=== PATIENT | female | born 1980 | race Caucasian/White ===

== ENCOUNTER 2020-08-16 16:36 | Inpatient (IN) ==
[2020-08-16] MEDS ORDERED: *HR* Labetalol 20 MG/4 ML SYRINGE IVP PRN (18:04)
[2020-08-16] MEDS ORDERED: Ondansetron 4 MG/2 ML VIAL IVP PRN (20:21)
[2020-08-16] MEDS ORDERED: Naloxone 0.4 MG/ML INJ IVP PRN (20:21)
[2020-08-16] MEDS ORDERED: Acetaminophen 325 MG TABLET PO PRN ×2 (20:21)
[2020-08-16] MEDS ORDERED: Melatonin 3 MG TABLET PO PRN (20:21)
[2020-08-16] MEDS ORDERED: *HR* Dextrose 50 % in Water (Vial) 50 ML VIAL IVP PRN (20:29)
[2020-08-16] MEDS ORDERED: D5% in Water 1,000 ML IVC PRN (20:29)
[2020-08-16] MEDS ORDERED: Dextrose Gel 15 GM/37.5 ML TUBE PO PRN ×2 (20:29)
[2020-08-16] MEDS ORDERED: Insulin DETEMIR 100 UNIT/ML X5UNITS SUBQ SCH (21:00)
[2020-08-16] MEDS: lisinopriL 10 MG TABLET PO SCH (21:02)
[2020-08-16] MEDS: Insulin DETEMIR 100 UNIT/ML X5UNITS SUBQ SCH (21:33)
[2020-08-16] MEDS: Insulin LISPRO 300 UNITS/3 ML VIAL SUBQ SCH (23:30)
[2020-08-17 01:23] LABS: Basophils # 0.1 K/mcL (0.0-0.2); Basophils % 0.5 %; Eosinophils # 0.2 K/mcL (0.0-0.6); Eosinophils % 1.8 %; Hematocrit 33.6 % (35.3-44.9); Hemoglobin 10.8 g/dL (11.5-15.4); Immature Granulocytes % 0.3 % (0-4); Lymphocytes # 3.3 K/mcL (0.6-4.6); Lymphocytes % 28.5 %; Mean Corpuscular HGB Conc 32.1 g/dL (31.6-35.5); Mean Corpuscular Hemoglobin 27.9 pg (28.0-33.3); Mean Corpuscular Volume 86.8 fL (83.0-100.0); Mean Platelet Volume 10.4 fL (9.4-12.4); Monocytes # 0.5 K/mcL (0.0-1.3); Monocytes % 4.3 %; Neutrophils # 7.5 K/mcL (1.6-8.9); Platelet Count 292 K/mcL (140-400); Red Blood Count 3.87 M/mcL (3.82-4.97); Segmented Neutrophils % 64.6 %; White Blood Count 11.6 K/mcL (4.3-11.1)
[2020-08-17 01:46] LABS: BUN/Creatinine Ratio 26 (6-26); Blood Urea Nitrogen 20 mg/dL (6-20); Calcium 8.9 mg/dL (8.6-10.3); Carbon Dioxide 24 mEq/L (23-29); Chloride 105 mEq/L (98-107); Glucose 194 mg/dL (70-105); Magnesium 1.7 mg/dL (1.6-2.6); Osmolality,Calculated 292 (280-300); Potassium 4.1 mEq/L (3.5-5.1); Sodium 137 mEq/L (136-145); eGFR For African Americans > 60 (> 60); eGFR For Non-African Americans > 60 (> 60)
[2020-08-17] MEDS: Insulin LISPRO 300 UNITS/3 ML VIAL SUBQ SCH ×4 (05:41→22:50)
[2020-08-17] MEDS ORDERED: Ergocalciferol (VIT D2) 50,000 UNIT (1.25MG) CAP PO SCH (09:00)
[2020-08-17] MEDS ORDERED: Doxycycline 100 MG in 0.9 % Sodium Chloride Mini Bag 100 ML IVPB SCH (09:00)
[2020-08-17] MEDS: Isosorbide MONOnitrate (24 HR) 30 MG TAB.ER.24H PO SCH (09:05)
[2020-08-17] MEDS: Furosemide 40 MG TABLET PO SCH (09:05)
[2020-08-17] MEDS: amLODIPine 5 MG TABLET PO SCH (09:05)
[2020-08-17] MEDS: Aspirin Enteric Coated 81 MG Tablet PO SCH (09:05)
[2020-08-17] MEDS: lisinopriL 10 MG TABLET PO SCH (09:06)
[2020-08-17] MEDS: Insulin DETEMIR 100 UNIT/ML X5UNITS SUBQ SCH ×2 (09:06→21:48)
[2020-08-17] MEDS: (Empagliflozin [Jardiance] 25 MG Tablet) PO SCH (09:32)
[2020-08-17 13:50] LABS: Creatine Kinase 25 Units/L (30-223)
[2020-08-18] MEDS: Insulin LISPRO 300 UNITS/3 ML VIAL SUBQ SCH ×4 (06:03→23:16)
[2020-08-18 06:22] LABS: Adenovirus Not Detected (Not Detect); Coronavirus 229E Not Detected (Not Detect); Coronavirus HKU1 Not Detected (Not Detect); Coronavirus NL63 Not Detected (Not Detect); Coronavirus OC43 Not Detected (Not Detect); SARS-CoV-2 Not Detected (Not Detect)
[2020-08-18 06:23] LABS: Bordetella Pertussis Not Detected (Not Detect); Chlamydophila pneumoniae Not Detected (Not Detect); Human Metapneumovirus Not Detected (Not Detect); Human Rhinovirus/Enterovirus Not Detected (Not Detect); Influenza A Subtype 2009 H1 Not Detected (Not Detect); Influenza B Not Detected (Not Detect); Mycoplasma pneumoniae Not Detected (Not Detect); Parainfluenza Virus 1 Not Detected (Not Detect); Parainfluenza Virus 2 Not Detected (Not Detect); Parainfluenza Virus 3 Not Detected (Not Detect); Parainfluenza Virus 4 Not Detected (Not Detect); Respiratory Syncytial Virus Not Detected (Not Detect)
[2020-08-18] MEDS ORDERED: lisinopriL 20 MG TABLET PO SCH (09:00)
[2020-08-18] MEDS: Aspirin Enteric Coated 81 MG Tablet PO SCH (09:36)
[2020-08-18] MEDS: Furosemide 40 MG TABLET PO SCH (09:36)
[2020-08-18] MEDS: amLODIPine 5 MG TABLET PO SCH (09:36)
[2020-08-18] MEDS: Isosorbide MONOnitrate (24 HR) 30 MG TAB.ER.24H PO SCH (09:36)
[2020-08-18] MEDS: Insulin DETEMIR 100 UNIT/ML X5UNITS SUBQ SCH ×2 (09:41→20:37)
[2020-08-18] MEDS: (Empagliflozin [Jardiance] 25 MG Tablet) PO SCH (09:41)
[2020-08-18 14:30] LABS: Basophils # 0.1 K/mcL (0.0-0.2); Basophils % 0.7 %; Eosinophils # 0.2 K/mcL (0.0-0.6); Eosinophils % 1.6 %; Hematocrit 37.2 % (35.3-44.9); Hemoglobin 11.4 g/dL (11.5-15.4); Immature Granulocytes % 0.3 % (0-4); Lymphocytes # 2.5 K/mcL (0.6-4.6); Lymphocytes % 26.2 %; Mean Corpuscular HGB Conc 30.6 g/dL (31.6-35.5); Mean Corpuscular Hemoglobin 27.3 pg (28.0-33.3); Mean Corpuscular Volume 89.2 fL (83.0-100.0); Mean Platelet Volume 10.4 fL (9.4-12.4); Monocytes # 0.5 K/mcL (0.0-1.3); Monocytes % 5.2 %; Neutrophils # 6.2 K/mcL (1.6-8.9); Platelet Count 314 K/mcL (140-400); Red Blood Count 4.17 M/mcL (3.82-4.97); Red Cell Distribution Width 14.4 % (11.5-14.5); White Blood Count 9.4 K/mcL (4.3-11.1)
[2020-08-18 14:36] LABS: BUN/Creatinine Ratio 27 (6-26); Blood Urea Nitrogen 28 mg/dL (6-20); Calcium 9.2 mg/dL (8.6-10.3); Carbon Dioxide 27 mEq/L (23-29); Chloride 106 mEq/L (98-107); Glucose 104 mg/dL (70-105); Osmolality,Calculated 292 (280-300); Potassium 4.5 mEq/L (3.5-5.1); Sodium 138 mEq/L (136-145); eGFR For African Americans > 60 (> 60); eGFR For Non-African Americans 58 (> 60)
[2020-08-18] MEDS ORDERED: DAPTOmycin 500 MG in 0.9 % Sodium Chloride 100 ML IVPB SCH (15:00)
[2020-08-18] MEDS ORDERED: *HR* FentaNYL (PF) 100 MCG/2 ML VIAL ONE (15:04)
[2020-08-18] MEDS ORDERED: *HR* Midazolam HCl 2 MG/2 ML VIAL ONE (15:04)
[2020-08-18] MEDS ORDERED: Lidocaine -MPF 2% 2 ML VIAL ONE (15:04)
[2020-08-18] MEDS ORDERED: Lidocaine 1% 20 ML MDV ONE (15:05)
[2020-08-18] MEDS ORDERED: Bupivacaine-MPF 0.25% 10 ML VIAL ONE (15:05)
[2020-08-18] MEDS ORDERED: EPHEDrine 50 MG/ML VIAL ONE (15:29)
[2020-08-18] MEDS ORDERED: Piperacillin/Tazobactam 3.375 GM in 0.9 % Sodium Chloride Mini Bag 100 ML IVPB SCH (16:00)
[2020-08-18] MEDS ORDERED: Naloxone 0.4 MG/ML INJ IVP PRN (16:59)
[2020-08-18] MEDS ORDERED: Dextrose Gel 15 GM/37.5 ML TUBE PO PRN ×2 (16:59)
[2020-08-18] MEDS ORDERED: Ondansetron 4 MG/2 ML VIAL IVP PRN (16:59)
[2020-08-18] MEDS ORDERED: Acetaminophen 325 MG TABLET PO PRN (16:59)
[2020-08-18] MEDS ORDERED: D5% in Water 1,000 ML IVC PRN (16:59)
[2020-08-18] MEDS ORDERED: *HR* Dextrose 50 % in Water (Vial) 50 ML VIAL IVP PRN (16:59)
[2020-08-18] MEDS: Piperacillin/Tazobactam 3.375 GM in 0.9 % Sodium Chloride Mini Bag 100 ML IVPB SCH (18:01)
[2020-08-18] MEDS ORDERED: Melatonin 3 MG TABLET PO PRN (21:00)
[2020-08-18] MEDS ORDERED: Metoclopramide 10 MG/2 ML VIAL IVP ONE (23:04)
[2020-08-19] MEDS: Piperacillin/Tazobactam 3.375 GM in 0.9 % Sodium Chloride Mini Bag 100 ML IVPB SCH ×3 (03:40→17:45)
[2020-08-19 04:05] LABS: Basophils # 0.1 K/mcL (0.0-0.2); Basophils % 0.6 %; Eosinophils # 0.2 K/mcL (0.0-0.6); Eosinophils % 1.8 %; Hematocrit 31.8 % (35.3-44.9); Immature Granulocytes % 0.2 % (0-4); Lymphocytes # 2.8 K/mcL (0.6-4.6); Lymphocytes % 32.7 %; Mean Corpuscular HGB Conc 31.4 g/dL (31.6-35.5); Mean Corpuscular Hemoglobin 27.9 pg (28.0-33.3); Mean Corpuscular Volume 88.6 fL (83.0-100.0); Mean Platelet Volume 10.2 fL (9.4-12.4); Monocytes # 0.5 K/mcL (0.0-1.3); Monocytes % 5.7 %; Platelet Count 243 K/mcL (140-400); Red Blood Count 3.59 M/mcL (3.82-4.97); Red Cell Distribution Width 14.5 % (11.5-14.5); White Blood Count 8.4 K/mcL (4.3-11.1)
[2020-08-19 04:22] LABS: BUN/Creatinine Ratio 24 (6-26); Blood Urea Nitrogen 27 mg/dL (6-20); Calcium 8.4 mg/dL (8.6-10.3); Carbon Dioxide 26 mEq/L (23-29); Chloride 107 mEq/L (98-107); Glucose 77 mg/dL (70-105); Osmolality,Calculated 294 (280-300); Sodium 140 mEq/L (136-145); eGFR For African Americans > 60 (> 60); eGFR For Non-African Americans 54 (> 60)
[2020-08-19] MEDS: Insulin LISPRO 300 UNITS/3 ML VIAL SUBQ SCH ×3 (06:18→17:52)
[2020-08-19] MEDS: Isosorbide MONOnitrate (24 HR) 30 MG TAB.ER.24H PO SCH (09:14)
[2020-08-19] MEDS: amLODIPine 5 MG TABLET PO SCH (09:14)
[2020-08-19] MEDS: Furosemide 40 MG TABLET PO SCH (09:15)
[2020-08-19] MEDS: lisinopriL 20 MG TABLET PO SCH (09:15)
[2020-08-19] MEDS: Aspirin Enteric Coated 81 MG Tablet PO SCH (09:16)
[2020-08-19] MEDS: JARDIANCE 25 MG PO SCH (09:18)
[2020-08-19] MEDS: Insulin DETEMIR 100 UNIT/ML X5UNITS SUBQ SCH ×2 (09:18→21:03)
[2020-08-19] MEDS ORDERED: DAPTOmycin 500 MG in 0.9 % Sodium Chloride 100 ML IVPB SCH (15:00)
[2020-08-19] MEDS: Gabapentin 300 MG CAPSULE PO SCH ×2 (15:11→21:06)
[2020-08-20] MEDS: Insulin LISPRO 300 UNITS/3 ML VIAL SUBQ SCH ×4 (00:17→17:19)
[2020-08-20] MEDS: Piperacillin/Tazobactam 3.375 GM in 0.9 % Sodium Chloride Mini Bag 100 ML IVPB SCH ×2 (02:26→10:08)
[2020-08-20 02:57] LABS: Basophils # 0.1 K/mcL (0.0-0.2); Basophils % 0.7 %; Eosinophils # 0.1 K/mcL (0.0-0.6); Eosinophils % 1.7 %; Hematocrit 30.4 % (35.3-44.9); Hemoglobin 9.6 g/dL (11.5-15.4); Immature Granulocytes % 0.1 % (0-4); Lymphocytes # 2.8 K/mcL (0.6-4.6); Lymphocytes % 32.8 %; Mean Corpuscular HGB Conc 31.6 g/dL (31.6-35.5); Mean Corpuscular Hemoglobin 28.2 pg (28.0-33.3); Mean Corpuscular Volume 89.1 fL (83.0-100.0); Mean Platelet Volume 10.6 fL (9.4-12.4); Monocytes # 0.6 K/mcL (0.0-1.3); Monocytes % 7.1 %; Neutrophils # 4.9 K/mcL (1.6-8.9); Platelet Count 230 K/mcL (140-400); Red Blood Count 3.41 M/mcL (3.82-4.97); Red Cell Distribution Width 14.3 % (11.5-14.5); Segmented Neutrophils % 57.6 %; White Blood Count 8.5 K/mcL (4.3-11.1)
[2020-08-20 03:12] LABS: Calcium 8.5 mg/dL (8.6-10.3); Potassium 3.9 mEq/L (3.5-5.1)
[2020-08-20] MEDS: Isosorbide MONOnitrate (24 HR) 30 MG TAB.ER.24H PO SCH (10:01)
[2020-08-20] MEDS: lisinopriL 20 MG TABLET PO SCH (10:01)
[2020-08-20] MEDS: amLODIPine 5 MG TABLET PO SCH (10:01)
[2020-08-20] MEDS: Gabapentin 300 MG CAPSULE PO SCH ×2 (10:06→20:09)
[2020-08-20] MEDS: Furosemide 40 MG TABLET PO SCH (10:07)
[2020-08-20] MEDS: Aspirin Enteric Coated 81 MG Tablet PO SCH (10:07)
[2020-08-20] MEDS: Insulin DETEMIR 100 UNIT/ML X5UNITS SUBQ SCH ×2 (10:07→20:10)
[2020-08-20] MEDS: JARDIANCE 25 MG PO SCH (10:31)
[2020-08-20] MEDS ORDERED: levoFLOXacin 750 MG/150 ML 750 MG/150 ML BAG IVPB SCH (12:30)
[2020-08-20] MEDS: metroNIDAZOLE 500 MG TABLET PO SCH ×2 (15:55→20:09)
[2020-08-21] MEDS: Insulin LISPRO 300 UNITS/3 ML VIAL SUBQ SCH ×3 (00:03→12:31)
[2020-08-21 05:01] LABS: Basophils # 0.1 K/mcL (0.0-0.2); Basophils % 0.8 %; Eosinophils # 0.2 K/mcL (0.0-0.6); Eosinophils % 2.1 %; Hematocrit 31.7 % (35.3-44.9); Hemoglobin 9.8 g/dL (11.5-15.4); Immature Granulocytes % 0.3 % (0-4); Lymphocytes # 2.3 K/mcL (0.6-4.6); Lymphocytes % 27.1 %; Mean Corpuscular HGB Conc 30.9 g/dL (31.6-35.5); Mean Corpuscular Hemoglobin 27.9 pg (28.0-33.3); Mean Corpuscular Volume 90.3 fL (83.0-100.0); Mean Platelet Volume 10.7 fL (9.4-12.4); Monocytes # 0.5 K/mcL (0.0-1.3); Monocytes % 5.8 %; Neutrophils # 5.5 K/mcL (1.6-8.9); Platelet Count 224 K/mcL (140-400); Red Blood Count 3.51 M/mcL (3.82-4.97); Red Cell Distribution Width 14.2 % (11.5-14.5); Segmented Neutrophils % 63.9 %; White Blood Count 8.6 K/mcL (4.3-11.1)
[2020-08-21 05:18] LABS: BUN/Creatinine Ratio 25 (6-26); Blood Urea Nitrogen 26 mg/dL (6-20); Calcium 8.6 mg/dL (8.6-10.3); Carbon Dioxide 28 mEq/L (23-29); Chloride 105 mEq/L (98-107); Glucose 160 mg/dL (70-105); Osmolality,Calculated 294 (280-300); Potassium 4.1 mEq/L (3.5-5.1); Sodium 138 mEq/L (136-145); eGFR For African Americans > 60 (> 60); eGFR For Non-African Americans 58 (> 60)
[2020-08-21] MEDS: lisinopriL 20 MG TABLET PO SCH (08:51)
[2020-08-21] MEDS: Furosemide 40 MG TABLET PO SCH (08:51)
[2020-08-21] MEDS: Isosorbide MONOnitrate (24 HR) 30 MG TAB.ER.24H PO SCH (08:51)
[2020-08-21] MEDS: Aspirin Enteric Coated 81 MG Tablet PO SCH (08:51)
[2020-08-21] MEDS: metroNIDAZOLE 500 MG TABLET PO SCH ×2 (08:53→14:04)
[2020-08-21] MEDS: amLODIPine 5 MG TABLET PO SCH (12:06)
[2020-08-21] MEDS: Gabapentin 300 MG CAPSULE PO SCH (12:06)
[2020-08-21] MEDS: JARDIANCE 25 MG PO SCH (12:07)
[2020-08-21] MEDS: Insulin DETEMIR 100 UNIT/ML X5UNITS SUBQ SCH (12:39)
[2020-08-21] MEDS ORDERED: levoFLOXacin 750 MG/150 ML 750 MG/150 ML BAG IVPB SCH (14:00)
[2020-08-21 14:03] VITALS: BP 114/74
[2020-08-24] MEDS ORDERED: Ergocalciferol (VIT D2) 50,000 UNIT (1.25MG) CAP PO SCH (09:00)
== END 2020-08-21 17:39 | disposition home health service (06) | DRG 314 ==
LOC: 3NENU → SUATTDRO 17:45
PROVIDERS: ADMIT Internal Medicine; ATTEND Family Medicine